=== PATIENT | male | born 1970 | race Caucasian/White ===

== ENCOUNTER 2016-08-19 16:42 | Emergency (ER) | payer SELFPAY ==
--- NOTE | 2016-08-19 16:53 | ER Document Report ---
ED Medical Screen (RME) - General Stated Complaint: LEFT LEG PAIN Mode of Arrival: Ambulatory Information source: Patient Notes: c/o insect bite or possible ingrown hair follicle with infection to left leg that has been present for the past few days. It has increased in size and redness today and has noticed thick white drainage from the area. Denies fever, chills, nausea or vomiting. I have greeted and performed a rapid initial assessment of this patient. A comprehensive ED assessment and evaluation of the patient, analysis of test results and completion of the medical decision making process will be conducted by additional ED providers. Physical Exam - Vital signs Vitals: Temp Pulse Resp BP Pulse Ox 98.2 F 115 H 18 143/88 H 97 08/19/16 16:46 08/19/16 16:46 08/19/16 16:46 08/19/16 16:46 08/19/16 16:46 Interpretation: Hypertensive, Tachycardic Course - Vital Signs Vital signs: Temp Pulse Resp BP Pulse Ox 98.2 F 115 H 18 143/88 H 97 08/19/16 16:46 08/19/16 16:46 08/19/16 16:46 08/19/16 16:46 08/19/16 16:46
[2016-08-19] MEDS ORDERED: SULFAMETHOXAZOLE/TRIMETHOPRIM 800-160 MG TABLET PO ONE (18:12)
[2016-08-19] MEDS ORDERED: ONDANSETRON 4 MG TAB.RAPDIS PO ONE (18:12)
[2016-08-19] MEDS ORDERED: LIDOCAINE 4%/TETRACAINE 0.5%/EPI 0.18% 5 ML TOPICAL SOLN TOP ONE (18:12)
[2016-08-19] MEDS ORDERED: IBUPROFEN 800 MG TABLET PO ONE (18:12)
--- NOTE | 2016-08-19 19:50 | ER Document Report ---
HPI - HPI Patient complains to provider of: left medial thigh abscess Onset: Other - 4 days Quality of pain: Throbbing Pain Level: 2 Context: 45 yo male with ingrown hair that started as pimple is now much larger, tender, warm, redder after squeezed some at home. no hx mrsa Associated Symptoms: None Exacerbated by: Movement Relieved by: Denies Similar symptoms previously: No Recently seen / treated by doctor: No - DERM Skin Color: Normal Past Medical History - General Information source: Patient - Social History Smoking Status: Never Smoker Chew tobacco use (# tins/day): No Frequency of alcohol use: Occasional Drug Abuse: None Lives with: Spouse/Significant other Family History: Reviewed & Not Pertinent Patient has suicidal ideation: No Patient has homicidal ideation: No - Medical History Medical History: Negative Renal/ Medical History: Denies: Hx Peritoneal Dialysis Surgical Hx: Negative Vertical Provider Document - CONSTITUTIONAL Agree With Documented VS: Yes Exam Limitations: No Limitations General Appearance: No Apparent Distress - INFECTION CONTROL TRAVEL OUTSIDE OF THE [place] IN LAST 30 DAYS: No - HEENT HEENT: Normocephalic - NECK Neck: Supple - RESPIRATORY O2 Sat by Pulse Oximetry: 97 - MUSCULOSKELETAL/EXTREMETIES Musculoskeletal/Extremeties: MAEW, FROM - NEURO Level of Consciousness: Awake, Alert - DERM Integumentary: Warm, Dry, Abscess - 2 cm indurated crusted abscess anterior medial proximal left thigh with surrounding pink inflamation. Course - Vital Signs Vital signs: Temp Pulse Resp BP Pulse Ox 98.2 F 115 H 18 143/88 H 97 08/19/16 16:46 08/19/16 16:46 08/19/16 16:46 08/19/16 16:46 08/19/16 16:46 Procedures - Incision and Drainage Left Thigh Time completed: 19:30 Type: Simple Anesthetic type: 1% Lidocaine mL's of anesthetic: 5 Blade size: 11 I&D procedure: Betadine prep applied Incision Method: Incision made by scalpel Amount/type of drainage: moderate pus Adult Front & Back picture: 1 - abscess Discharge - Discharge Clinical Impression: I and D left thigh abscess Condition: Good Disposition: HOME, SELF-CARE Instructions: Trimethoprim-Sulfa ([facility]), Post Incision and Drainage, Abscess ( [facility]), Warm Packs ([facility]) Additional Instructions: warm compress tomorrow and elevate to er if worse keep dressing on for 2 days, then wash vigorously with soap and washclothe daily , dry dressing Prescriptions: Ibuprofen [Motrin 800 mg Tablet] 800 mg PO Q8HP PRN #30 tablet PRN Reason: Sulfamethoxazole/Trimethoprim [Sulfamethoxazole-Tmp Ds Tablet] 1 each PO BID # 14 tablet Forms: Return to Work
[2016-08-19 20:03] VITALS: BP 135/93
== END 2016-08-19 19:54 | disposition home or self-care (01) ==
LOC: ER 16:42
PROC: 0H9JXZZ Drainage of Left Upper Leg Skin, External Approach (ICD-10-PCS; principal; 2016-08-19)
DX: L02.416 Cutaneous abscess of left lower limb (principal)
CPT/HCPCS: 99283; 10060; S0119; J3490

== ENCOUNTER 2017-11-15 21:14 | Emergency (ER) | payer SELFPAY ==
[2017-11-15] MEDS ORDERED: METHYLPREDNISOLONE INJ 125 MG/2 ML SDV IV ONE (21:37)
[2017-11-15] MEDS ORDERED: DIPHENHYDRAMINE HCL 50 MG/ML VIAL IV ONE (21:37)
[2017-11-15] MEDS ORDERED: FAMOTIDINE INJ/PF 20 MG/2 ML SDV IV ONE (21:37)
[2017-11-15] MEDS ORDERED: NORMAL SALINE 1000 ML 1,000 ML IV ONE (21:37)
--- NOTE | 2017-11-15 23:59 | ER Document Report ---
ED General - General Chief Complaint: Allergic Reaction Stated Complaint: POSSIBLE ALLERGIC REACTION Time Seen by Provider: 11/15/17 21:36 TRAVEL OUTSIDE OF THE [place] IN LAST 30 DAYS: No - HPI Patient complains to provider of: Allergic reaction Notes: Patient coming in for an acute allergic reaction. Patient states he was bitten possibly by some fire ants developed significant redness welts on his extremities and torso was given 25 mg of Benadryl orally by family member and then brought to the ER for further evaluation. Patient sitting up talking in complete sentences with no signs of restaurant distress upon my evaluation patient denies any shortness of breath denies any feelings of his throat is closing however states significant itching and burning sensation of his extremities. Patient was tachycardic however states he is very anxious is that he does not visit hospitals much. Patient does not have any significant past medical history denies any allergies in the past except for seasonal - Related Data Allergies/Adverse Reactions: No Known Allergies Allergy (Unverified 08/19/16 16:51) Past Medical History - Social History Smoking Status: Never Smoker Chew tobacco use (# tins/day): No Frequency of alcohol use: Social Drug Abuse: None Family History: Reviewed & Not Pertinent Patient has suicidal ideation: No Patient has homicidal ideation: No Renal/ Medical History: Denies: Hx Peritoneal Dialysis Review of Systems - Review of Systems Constitutional: Other - Allergic reaction EENT: No symptoms reported Cardiovascular: No symptoms reported Respiratory: No symptoms reported Gastrointestinal: No symptoms reported Genitourinary: No symptoms reported Male Genitourinary: No symptoms reported Musculoskeletal: No symptoms reported Skin: No symptoms reported Hematologic/Lymphatic: No symptoms reported Neurological/Psychological: No symptoms reported Physical Exam - Vital signs Vitals: Temp Pulse Resp BP Pulse Ox 97.5 F 122 H 20 139/94 H 98 11/15/17 21:19 11/15/17 21:19 11/15/17 21:19 11/15/17 21:19 11/15/17 21:19 Interpretation: Normal - General General appearance: Appears well, Alert - HEENT Head: Normocephalic, Atraumatic Eyes: Normal Pupils: PERRL Pharynx: Normal. No: Uvular edema Neck: Normal - Respiratory Respiratory status: No respiratory distress Chest status: Nontender Breath sounds: Normal Chest palpation: Normal - Cardiovascular Rhythm: Regular Heart sounds: Normal auscultation Murmur: No - Abdominal Inspection: Normal Distension: No distension Bowel sounds: Normal Tenderness: Nontender Organomegaly: No organomegaly - Back Back: Normal, Nontender - Extremities General upper extremity: Normal inspection, Nontender, Normal color, Normal ROM , Normal temperature General lower extremity: Normal inspection, Nontender, Normal color, Normal ROM , Normal temperature, Normal weight bearing. No: Zahra's sign - Neurological Neuro grossly intact: Yes Cognition: Normal Orientation: AAOx4 [place] Coma Scale Eye Opening: Spontaneous [place] Coma Scale Verbal: Oriented [place] Coma Scale Motor: Obeys Commands [place] Coma Scale Total: 15 Speech: Normal Motor strength normal: LUE, RUE, LLE, RLE Sensory: Normal - Psychological Associated symptoms: Normal affect, Normal mood - Skin Skin Temperature: Warm Skin Moisture: Dry Skin Color: Other - Hives on all extremities and the torso Course - Re-evaluation Re-evalutation: 11/16/17 03:25 Patient was observed here in ER with improvement of his symptoms with IV Benadryl Pepcid and steroids. Patient was given oral steroids after ambulating to the bathroom request to be discharged home. Reevaluation again shows no airway compromise and swelling of the posterior pharynx. Patient was given a prescription for EpiPen's for severe reaction was educated on EpiPen use. Patient will be discharged home follow-up primary care physician - Vital Signs Vital signs: Temp Pulse Resp BP Pulse Ox 98.5 F 90 18 130/89 H 98 11/16/17 00:18 11/16/17 00:02 11/16/17 00:02 11/16/17 00:02 11/16/17 00:02 Discharge - Discharge Clinical Impression: Allergic reaction Qualifiers: Encounter type: initial encounter Qualified Code(s): T78.40XA - Allergy, unspecified, initial encounter Condition: Good Disposition: HOME, SELF-CARE Instructions: Acute Allergic Reaction ([facility]), Use of Diphenhydramine Additional Instructions: Please take the steroids as prescribed. Please use Benadryl as recommended. Return to ER symptoms worsen follow-up with your primary care physician please use the EpiPen's only if you develop a significant allergic reaction were causing significant shortness of breath Prescriptions: Epinephrine [Epipen] 0.3 mg IJ ONCE PRN #2 auto.injct PRN Reason: Prednisone [Deltasone] 60 mg PO DAILY #24 tablet Forms: Return to Work
[2017-11-16 00:03] VITALS: BP 130/89
[2017-11-16] MEDS ORDERED: PREDNISONE 20 MG TABLET PO ONE (00:11)
== END 2017-11-16 00:19 | disposition home or self-care (01) ==
LOC: ER 21:14
DX: L50.0 Allergic urticaria (principal)
CPT/HCPCS: 99283; 96361; 96374; 96375; J1200; J2930; J7512; J7030; S0028